=== PATIENT | female | born 1995 | race Caucasian/White ===

== ENCOUNTER → 2020-06-09 12:56 | Outpatient (BNVA) | payer BC, OTHER, SELFPAY | PROVIDERS: PCP Internal Medicine; Referring Provider Internal Medicine; Visit Provider Advanced Practice Midwife | DX: Z76.89 Persons encountering health services in other specified circumstances (principal) ==

== ENCOUNTER 2021-12-07 15:28 | Outpatient (REF) | payer BC, SELFPAY ==
[2021-12-07 16:23] LABS: COVID-19 Test Negative (Negative); IDNOW Serial# 16C4AD1C
== END 2021-12-07 15:29 | disposition home or self-care (01) ==
LOC: HO.LAB 15:28
PROVIDERS: PCP Internal Medicine; Visit Provider Physician Assistant
DX: Z20.822 Contact with and (suspected) exposure to COVID-19 (principal)
CPT/HCPCS: 87635

== ENCOUNTER 2023-06-18 16:19 | Emergency (ER) | payer OTHER, SELFPAY ==
[2023-06-18 16:40] VITALS: BP 116/79; PULSE 71; RESP 16; TEMP 36.3; O2SAT 100; BMI 36.1
--- NOTE | 2023-06-18 16:40 | ED_ITS ---
HPI - General Adult General Chief complaint: Urogenital-Female Stated complaint: bladder pain Time Seen by Provider: 06/18/23 18:03 Source: patient Mode of arrival: ambulatory Limitations: no limitations History of Present Illness HPI narrative: Patient is a 28-year-old female who presents emergency department for evaluation of genitourinary symptoms. She reports symptom onset approximately 1 month ago. She has been experiencing bladder pressure/pain, urinary frequency, sensation of incomplete voiding, intermittent vaginal discharge yellow in nature with itching. She reports in the beginning of April she had symptoms of urinary tract infection for which she received prescription for Macrobid 7 day course. Her symptoms had resolved. She began with a vaginal discharge and itching, on 06/03 she received prescription for Diflucan. She again began experiencing the aforementioned symptoms, on 06/05/2023 she received a 7 day prescription for Macrobid. After approximately 5 days she did not feel as though her symptoms were improving, she contacted her PCP, who prescribed her Bactrim for 3 days which she completed. She again reports no improvement in her symptoms. She states that she provided a urine sample at her doctor's office yesterday due to these continued symptoms. She reports a past medical history of ovarian cysts, and recurrent bacterial vaginosis when she was previously . She denies concern for sexually transmitted infections. Denies pain with intercourse. Last menstrual period 1 week ago. Denies fevers, chills, nausea, vomiting, flank pain, back pain, abdominal pain, constipation, diarrhea, hematochezia, melena, hematuria. Related Data Previous Rx's Medication Instructions Recorded phenazopyridine 100 mg tablet 100 mg PO TID PRN pain 6 doses #6 06/18/23 (Pyridium) tabs Allergies Allergy/AdvReac Type Severity Reaction Status Date / Time No Known Allergies Allergy Verified 06/09/20 13:06 [No Known Allergies*] Review of Systems 2 Review of Systems: Yes all other systems are reviewed and are negative PMFSH Past Medical History Attestation statement: The following information was validated with the patient. Source: old records reviewed Family History Family History Maternal Grandmother CVD (cardiovascular disease) Paternal Grandmother HTN (hypertension) Social History Social History Alcohol intake: never Advance Directives: No Advance Directives Information Provided: No Gender identity: Female Physical Exam ED Vital Signs: Vital Signs - 24 hr 06/18/23 16:40 Temperature 97.4 F Pulse Rate 71 Respiratory Rate 16 Blood Pressure 116/79 Pulse Oximetry 100 Oxygen Delivery Method Room Air BMI result Body Mass Index 36.1 Appearance: Alert.?Oriented to person, place and time. No acute distress.?Normal affect.?? Neck: Normal inspection.? Neck supple.?? CVS: Heart sounds normal. Normal heart rate and rhythm.? Pulses normal.?? Respiratory: No respiratory distress.? Lung sounds clear to auscultation bilaterally?? Abdomen: Soft and non-tender. Normoactive bowel sounds. No CVA tenderness? Genitourinary:? Supervised by ED natural resources technician CAT.. Normal external appearance of urethra.? No lesions/lacerations or discharge or tenderness noted. No Bartholin cyst noted.? Speculum exam: normal appearance/palpation of vagina normal. Presence of yellow/white mucosal vaginal discharge. no evidence of vaginal swelling, erythema, laceratons, or active bleeding noted.?No foreign bodies noted.? No vaginal tenderness noted.? Normal appearance of cervix. Normal palpation of cervix.? Cervical os is closed.? No abnormal cervical discharge noted.? No cervical lesion/mass.?? No cervical motion tenderness noted.? Negative chandelier sign.? Normal bimanual exam.? Uterine size normal. Uterine consistency normal.? Bladder normal to palpation. Normal adnexa. Normal rectovaginal exam. Skin: Skin warm and dry.? Normal skin color.? Extremities: No lower extremity edema.? Neuro: Moves all extremities spontaneously. Sensation intact bilaterally. Ambulates with normal steady gait. Course Course Course Narrative: This is an RME: Additional HPI, ROS, PE not included below will be deferred to primary provider. 28-year-old female w history of ovarian cysts and BV during presents for evaluation of sensation of bladder pressure/pain and increased urinary frequency. She says it feels like she isn't fully emptying her bladder. She has been on 2 rounds of antibiotics for a UTI and an oral antifungal for a suspected yeast infection. She also reports yellow/green discharge and vaginal itching for the past month. LMP was last week. Plan: Labs, urinalysis, test, NG/CT/BV Medical Decision Making Medical Decision Making [facility] Narrative: Patient is a 28-year-old female who presents emergency department for evaluation of genitourinary symptoms as per HPI. At the time my examination she appears overall well, nontoxic. She is afebrile, without tachypnea. Abdominal examination is benign. No CVA tenderness. Pelvic examination notable for white/yellow mucosal vaginal discharge otherwise unremarkable. History and physical examination, less likely to be PID. Pruritus has resolved, lower suspicion for Denise at this time. Sent testing for bacterial vaginosis panel, chlamydia, gonorrhea, Trichomonas. Labs obtained prior to my assumption of care reveals no leukocytosis or anemia. Overall unremarkable CMP. Lipase within normal limits. Urinalysis without evidence of infection. testing negative. Reviewed these findings with patient, discussed cystitis, symptomatic treatment primary outpatient with Urology. Reviewed worrisome symptoms the department. All questions answered. Stable for discharge. Differential Diagnosis Differential Diagnoses: The differential diagnosis associated with the presentation includes (As noted above) Lab Data [facility] Lab Attestation statement: I reviewed the patient's lab results. (As noted above) 06/18/23 16:59 06/18/23 16:59 Labs: Lab Results 06/18/23 06/18/23 Range/Units 16:59 19:08 WBC 7.8 (4.8-10.8) X10*3/uL RBC 4.87 (4.20-5.50) X10*6/uL Hgb 14.0 (12.0-16.0) g/dl Hct 42.5 (37.0-47.0) % MCV 87.3 (80.0-98.0) fL MCH 28.7 (27.0-33.0) pg MCHC 32.9 (31.0-35.0) g/dl RDW 13.0 (11.0-16.0) % Plt Count 333 (160-400) X10*3/uL MPV 10.2 (9.4-12.3) fL Immature Gran % (Auto) 0.3 (0.0-0.4) % Neut % (Auto) 56.6 (45-73) % Lymph % (Auto) 35.4 (20-40) % [place] % (Auto) 5.7 (2-11) % Eos % (Auto) 1.4 (0-4) % Baso % (Auto) 0.6 (0-2) % Lymph # (Auto) 2.7 (1.2-4.9) X10*3/uL [place] # (Auto) 0.4 (0.1-1.2) X10*3/uL Eos # (Auto) 0.1 (0.0-0.4) X10*3/uL Baso # (Auto) 0.1 (0.0-0.2) X10*3/uL Abs Immat Gran (auto) 0.02 (0.00-0.03) X10*3/uL Absolute Neuts (auto) 4.4 (2.0-8.3) x10*3/uL Absolute Nucleated RBC 0.000 (0.0-0.012) X10*3/uL Nucleated RBC % (auto) 0.0 (0.0-0.2) /100WBC Sodium 137 (135-145) mmol/L Potassium 4.8 (3.3-5.1) mmol/L Chloride 106 (96-108) mmol/L Carbon Dioxide 26 (22-29) mmol/L Anion Gap 10 L (12-20) BUN 9 (9-16) mg/dL Creatinine 0.72 (0.5-1.4) mg/dL Estim Creat Clear Calc 109.7 Estimated GFR > 60 Random Glucose 88 (60-115) mg/dL Calcium 9.3 (8.4-10.2) mg/dL Magnesium 1.9 (1.6-2.6) mg/dL Total Bilirubin 0.3 (0.0-1.0) mg/dL AST 15 (5-31) U/L ALT 18 (0-31) U/L Alkaline Phosphatase 74 (39-117) U/L Total Protein 7.8 (6.5-8.0) g/dL Albumin 4.4 (3.5-5.0) g/dL Lipase 18 (8-78) U/L Urine Color Yellow Urine Appearance Clear Urine pH 6.0 (5.0-9.0) Ur Specific Magnet 1.010 (1.005-1.025) Urine Protein Negative (Neg-Trace) mg/dL Urine Glucose (UA) Negative (Negative) mg/dL Urine Ketones Negative (Negative) mg/dL Urine Blood Negative (Negative) Urine Nitrite Negative (Negative) Ur Leukocyte Esterase Negative (Negative) Urine Test NEGATIVE (NEGATIVE) External Record Review External record reviewed: Outpatient record Prescription Management I considered prescription management with: Pain Medication and Antibiotic (Do not suspect acute infection at this, antibiotics deferred) Discharge Plan Discharge Clinical Impression: Cystitis Patient Disposition: Home, Self-Care Additional Instructions: You can take ibuprofen 200 mg, 3 tablets (600mg) every 6-8 hours as needed for pain, in addition to Tylenol 500 mg, 2 tablets (1,000mg) every 4-6 hours as needed for pain, but not to exceed 3 doses daily (3,000mg).? Contact the urology office to arrange for a follow-up visit. You may return back to emergency department any new or worsening symptoms or concerns. Prescriptions: New phenazopyridine [Pyridium] 100 mg tablet 100 mg PO TID PRN (Reason: pain) Qty: 6 0RF Referrals: Yuly Angeles MD [Physician] - David Mcdonough MD [Primary Care Provider] -
[2023-06-18 17:04] LABS: MANUAL DIFF FLAG NO
[2023-06-18 17:09] LABS: Basophils Absolute Auto 0.1 X10*3/uL (0.0-0.2); Basophils Percent Auto 0.6 % (0-2); Eosinophils Absolute Auto 0.1 X10*3/uL (0.0-0.4); Eosinophils Percent Auto 1.4 % (0-4); Hematocrit 42.5 % (37.0-47.0); Imm Gran Abs Auto 0.02 X10*3/uL (0.00-0.03); Imm Gran Pct Auto 0.3 % (0.0-0.4); Lymphocytes Absolute Auto 2.7 X10*3/uL (1.2-4.9); Lymphocytes Percent Auto 35.4 % (20-40); Mean Corpuscular HGB Conc 32.9 g/dl (31.0-35.0); Mean Corpuscular Hemoglobin 28.7 pg (27.0-33.0); Mean Corpuscular Volume 87.3 fL (80.0-98.0); Mean Platelet Volume 10.2 fL (9.4-12.3); Monocytes Absolute Auto 0.4 X10*3/uL (0.1-1.2); Monocytes Percent Auto 5.7 % (2-11); Neutrophils Absolute Auto 4.4 x10*3/uL (2.0-8.3); Neutrophils Percent Auto 56.6 % (45-73); Platelet Count 333 X10*3/uL (160-400); Red Blood Count 4.87 X10*6/uL (4.20-5.50); White Blood Count 7.8 X10*3/uL (4.8-10.8)
[2023-06-18 17:19] LABS: Alanine Aminotransferase 18 U/L (0-31); Albumin Level 4.4 g/dL (3.5-5.0); Alkaline Phosphatase 74 U/L (39-117); Anion Gap 10 (12-20); Aspartate Amino Transferase 15 U/L (5-31); Bilirubin Total 0.3 mg/dL (0.0-1.0); Blood Urea Nitrogen 9 mg/dL (9-16); Calcium 9.3 mg/dL (8.4-10.2); Carbon Dioxide 26 mmol/L (22-29); Chloride 106 mmol/L (96-108); Creatinine Clr Calc Pharmacy 109.7; Estimated Glomerular Filt Rate > 60; Glucose Random 88 mg/dL (60-115); Lipase 18 U/L (8-78); Magnesium 1.9 mg/dL (1.6-2.6); Potassium 4.8 mmol/L (3.3-5.1); Sodium 137 mmol/L (135-145); Total Protein 7.8 g/dL (6.5-8.0)
--- NOTE | 2023-06-18 18:53 | PC.NURSE ---
pelvic exam being performed by provider
[2023-06-18 19:18] LABS: Appearance Urine Clear; Color Urine Yellow; Glucose Urine UA Negative (Negative); Leukocyte Esterase Urine Negative (Negative); Nitrite Urine Negative (Negative); Urine Blood Negative (Negative); Urine Ketones Negative (Negative); Urine Protein Negative (Neg-Trace)
[2023-06-18 19:19] LABS: UPreg QC Valid YES; Urine Pregnancy NEGATIVE (NEGATIVE)
[2023-06-18 20:05] VITALS: BP 106/65; PULSE 74; RESP 20; TEMP 37.1; O2SAT 98
--- NOTE | 2023-06-18 20:17 | PC.NURSE ---
patient a&ox3, vss, pt has continued c/o pain- pt was prescribed medication which she will picker at the pharmacy on her way home.
[2023-06-19 03:51] LABS: CT PCR NOT DETECTED (Not Detect.); NG PCR NOT DETECTED (Not Detect.)
[2023-06-19 13:21] LABS: BV Int Neg Control Negative (Negative); BV Int Pos Control Positive (Positive)
== END 2023-06-18 20:27 | disposition home or self-care (01) ==
PROVIDERS: Physician Assistant; Emergency Provider Emergency Medicine; PCP Internal Medicine
DX: N30.90 Cystitis, unspecified without hematuria (principal); N89.8 Other specified noninflammatory disorders of vagina; Z87.440 Personal history of urinary (tract) infections
CPT/HCPCS: 0353U; 36415; 80053; 81003; 81025; 83690; 83735; 85025; 87480; 87510; 87660; 99283

== ENCOUNTER 2023-07-16 11:03 | Outpatient (AMB) | payer OTHER, SELFPAY ==
--- NOTE | 2023-07-16 11:07 | MHC.OFFVIS ---
Intake Intake Visit Reasons: cystitis Intake Note: New Patient presents for initial visit for cystitis Urology Medications: none Blood Thinner: none PVR: 0ml's Sales Management Trainee Required: No Accompanied by: Self / Same As Patient Allergies No Known Allergies [No Known Allergies*] Allergy (Verified 07/16/23 11:59) Medication List - Last Reconciled 07/16/23 by TERRI Coleman No Known Home Meds HPI HPI Comments History of Present Illness Details Herlinda is a very pleasant 28-year-old female patient of Dr. Mcdonough. She presents to the office today as a new patient for recurrent urinary tract infections. In discussion with the patient today she reports having had approximately 2 urinary tract infections in the last 3 months at which time she seeked urgent care services for. She reports having completed antibiotic therapy and has been doing and feeling much better. She reports being on dmanose over the counter and feels this helps her with her bladder pressure. She currently denies any UTI like symptoms. Discussed at length potential causes of recurrent urinary tract infections. When asked she does report constipation in does not feel she consumes adequate amount of water daily. In office urinalysis results reviewed with the patient today. Microscopic hematuria noted. She does report being on her menses. She otherwise denies any previous smoking history and or known chemical exposure. She reports be happy with current voiding parameters at this time. PVR 0 mLs. When asked she denies urinary urgency, urinary frequency, incontinence, nocturia, hematuria, dysuria, foul smelling urine, changes to urinary stream, flank pain, fever, and or chills. She otherwise offers no other issues or concerns at this time [facility] Family History Maternal Grandmother CVD (cardiovascular disease) Paternal Grandmother HTN (hypertension) Social History Alcohol intake: never Gender identity: Female Female Reproductive History Menstrual Age of Menarche: 10 Review of Systems Const All systems reviewed & are unremarkable except as noted in HPI and below Physical Exam Const General: cooperative, healthy appearing, comfortable, no acute distress, well developed, alert and awake Orientation/consciousness: patient oriented x3 Limitations: no limitations HEENT Head: Yes normal to inspection, Yes normocephalic and Yes atraumatic Ears: hearing grossly normal bilaterally Eyes General: appearance normal, both eyes and all related structures Neck Neck: Yes normal visual inspection and Yes trachea midline Chest Chest palpation & inspection: normal inspection of the chest Resp Effort & Inspection: normal respiratory effort and able to speak in complete sentences Cardio Rate: regular rate GI Inspection: Yes normal to inspection General: Yes no CVA tenderness Back/Spine/Pelvis Back: no CVA tenderness Skin General skin exam: no rashes or lesions noted Neuro General: patient oriented x3 Extrem General: Yes normal to inspection Psych Appearance: grossly normal and well kempt Mental Status: mental status grossly normal Speech and movement: Normal speech and movement present and Clear speech present Affect: normal affect Attitude: cooperative Thought process: Normal thought process present Thought content: Normal thought content present Insight: Good insight present (Psych) Judgement: Good judgement present (Psych) Office Procedures Post Void Residual Post Residual Void Post Void Residual (PVR): 0 [id number] Void Residual by ultrasound Results AMB Urinalysis, Automated UA Leukoctes 0 Alex/uL Last Edit by [employer] on 07/16/23 11:44 UA Nitrite Negative Last Edit by [employer] on 07/16/23 11:44 UA Urobilinogen 0.2 mg/dL Last Edit by [employer] on 07/16/23 11:44 UA Protein 15 mg/dL Last Edit by [employer] on 07/16/23 11:44 UA pH 6.0 Last Edit by [employer] on 07/16/23 11:44 UA Blood 10 Oswald/uL Last Edit by [employer] on 07/16/23 11:44 UA Specific Turner 1.030 Last Edit by [employer] on 07/16/23 11:44 UA Ketone Negative Last Edit by [employer] on 07/16/23 11:44 UA Bilirubin 1 mg/dL Last Edit by [employer] on 07/16/23 11:44 UA Glucose 0 mg/dL Last Edit by [employer] on 07/16/23 11:44 Results Reviewed Results Reviewed: Laboratory Last Values Urine pH (Auto) 6.0 07/16/23 11:09 Specific Turner (Auto) 1.030 07/16/23 11:09 Urine Protein (Auto) 15 mg/dL 07/16/23 11:09 Glucose (UA)(Auto) 0 mg/dL 07/16/23 11:09 Urine Ketones (Auto) Negative 07/16/23 11:09 Urine Blood (Auto) 10 Oswald/uL 07/16/23 11:09 Urine Nitrite (Auto) Negative 07/16/23 11:09 Urine Bilirubin (Auto) 1 mg/dL 07/16/23 11:09 Urine Urobilinogen (Auto) 0.2 mg/dL 07/16/23 11:09 Leukocyte Esterase (Auto) 0 Alex/uL 07/16/23 11:09 Assessment & Plan Assessment & Plan (1) Recurrent UTI: Code(s): N39.0 - Urinary tract infection, site not specified Plan In office urinalysis results reviewed with the patient today; as noted above. PVR 0 mL. Discussed at length potential causes for recurrent urinary tract infections. She currently denies any bothersome urinary issues or concerns at this time. She reports be happy with current voiding parameters. Will obtain retroperitoneal ultrasound for further assessment evaluation. Discussed UTI prevention with D mannose supplement, vitamin-C, increasing fluid intake, behavioral therapy with timed voiding, perineal hygiene and postcoital voiding, and management of constipation with stool softeners and increased fiber intake. Follow-up in 3 months with imaging to be completed prior PVR at next office visit; or sooner with any issues, concerns, and or questions. Orders: Orders AMB Urinalysis Automated Today Z13.9 - Encounter for screening, unspecified AMB Post Void Residual by ultrasound Today Z13.9 - Encounter for screening, unspecified US retroperitoneal comp Today N39.0 - Urinary tract infection, site not specified, R39.89 - Other symptoms and signs involving the genitourinary system Patient Instructions: The patient had an opportunity to ask questions regarding the treatment plan. All questions were answered. Physical exam, labs, and imaging were discussed and reviewed in detail. As well as risks, benefits, and discussion of treatment choices. No major barriers to understanding were identified. The patient expressed understanding and agreement with the above treatment plan. The patient was made aware they should contact our office by phone for worsening of their current condition, the appearance of new symptoms, or with any questions or concerns. Compliance is encouraged with any medications and follow up testing that is ordered. It is a privilege to be allowed the opportunity to participate in? your urological care.? Again, if you have any questions or concerns If you have any questions or concerns please do not hesitate to contact me. The office is [phone]. This note is constructed using voice recognition software. While every effort has been made to ensure accuracy card maker errors may have been included. Yours sincerely, TERRI Coleman Coding Level of Care Code New Pt Level 3 (47877) Diagnoses Recurrent UTI N39.0 CPT Codes Post Residual Void - PVR CPT Code: 50961-Ekfq Void Residual by ultrasound ([id number])
== END 2023-07-16 11:57 | disposition home or self-care (01) ==
PROVIDERS: PCP Internal Medicine; Visit Provider Nurse Practitioner Family
DX: Z13.9 Encounter for screening, unspecified (principal); N39.0 Urinary tract infection, site not specified
CPT/HCPCS: 99203

== ENCOUNTER → 2023-07-16 11:03 | Outpatient (BNVA) | payer OTHER, SELFPAY | PROVIDERS: PCP Internal Medicine; Visit Provider Nurse Practitioner Family | DX: N39.0 Urinary tract infection, site not specified (principal) | CPT/HCPCS: 51798; 81003 ==

== ENCOUNTER 2023-08-07 14:30 | Outpatient (REF) | payer OTHER, SELFPAY ==
--- NOTE | ~2023-08-07 | US_ITS ---
EXAMINATION: US RETROPERITONEAL COMPLETE (RENAL) CLINICAL INFORMATION: Urinary tract infection, site not specified. COMPARISON: None available. TECHNIQUE: Real-time imaging of the kidneys and bladder. FINDINGS: RIGHT KIDNEY: 11.0 x 4.3 x 6.2 cm (SAG x AP x TRV). The kidney is normal in size, contour, and echogenicity. Renal cortical thickness is normal. No calculi or focal parenchymal lesions. No hydronephrosis. LEFT KIDNEY: 11.8 x 5.5 x 5.4 cm (SAG x AP x TRV). The kidney is normal in size, contour, and echogenicity. Renal cortical thickness is normal. No calculi or focal parenchymal lesions. No hydronephrosis. BLADDER: Well distended and normal. Bilateral ureteral jets are demonstrated. Prevoid bladder volume is 503 mL. There is no postvoid residual. US/US retroperitoneal comp IMPRESSION: Unremarkable examination.
== END 2023-08-07 14:31 | disposition home or self-care (01) ==
LOC: HO.US 14:30
PROVIDERS: PCP Internal Medicine; Visit Provider Nurse Practitioner Family
DX: N39.0 Urinary tract infection, site not specified (principal); R39.89 Other symptoms and signs involving the genitourinary system
CPT/HCPCS: 76770

== ENCOUNTER 2023-08-21 13:06 | Outpatient (REF) | payer OTHER, SELFPAY ==
[2023-08-22 14:07] LABS: BV Int Neg Control Negative (Negative); BV Int Pos Control Positive (Positive)
== END 2023-08-21 13:07 | disposition home or self-care (01) ==
LOC: HO.LAB 13:06
PROVIDERS: PCP Internal Medicine; Visit Provider Advanced Practice Midwife
DX: Z32.01 Encounter for pregnancy test, result positive (principal); B37.31 Acute candidiasis of vulva and vagina; Z20.2 Contact with and (suspected) exposure to infections with a predominantly sexual mode of transmission
CPT/HCPCS: 81025; 87480; 87510; 87660

== ENCOUNTER 2023-08-21 13:06 | Outpatient (AMB) | payer OTHER, SELFPAY ==
--- NOTE | 2023-08-21 13:06 | A.OFFVIS_ITS ---
Intake Vital Signs 08/21/23 13:18 Height 5 ft Weight 186 lb BMI 36.3 BP 122/70 Intake Visit Reasons: Preg Consult Sewer Hand Required: No Information Interpreted: clinical only Bisque Ware Dipper: Bisque Ware Dipper Present Allergies No Known Allergies [No Known Allergies*] Allergy (Verified 08/21/23 13:06) Medication List - Last Reconciled 08/21/23 by Cassie De Leon CNM PNV no.175-iron fum-folic acid 29-1 mg tabs PO Is last menstrual period known: Yes Last menstrual period: 07/09/23 Do you need a note to return to daycare/school/sports/work: No HPI Preg Consult HPI Details Patient is scheduled here today as a consult visit. However she also has vaginal itching and she wants to get that checked out. Set she says she had a visit for consult on September 03 but it got bumped to today. Her last menstrual period was 07 09 she was trying to get so she is exactly 6 weeks on the nose and due in March. She said she spoke with somebody when she called for this appointment who says that they ordered an ultrasound for her already that has in a week or 2 for dating. She does not know of a follow-up visit from there. She says that this CNM delivered her 1st baby but her 2nd baby last year she delivered at [facility] because we had no birthing center but then she joined her 's insurance so she made this appointment here. She has used Monistat 7 for a couple of nights but it did not seem to make a difference she went for urgent care over the weekend in [place] where she lives but they told her everything tested negative. [facility] Medical History (Updated 08/21/23 @ 13:56 by Cassie De Leon CNM) Early stage of Family History Maternal Grandmother CVD (cardiovascular disease) Paternal Grandmother HTN (hypertension) Social History Alcohol intake: never Gender identity: Female Female Reproductive History Menstrual Age of Menarche: 10 Duration of menses: 3-5 days Date of last menstrual period: 07/09/23 control method: none Total pregnancies: 3 Full term: 2 Physical Exam Vital Signs: Last Vital Signs BP 122/70 08/21/23 13:18 BMI result Body Mass Index 36.3 Other: Vagina is pink consistent with yeast, slightly inflame cervix multiparous small amount white discharge no Denilson. Uterus softened consistent with 6 weeks . External Female Exam: normal external appearance (vulva swollen and enflamed, surface appears dry, disch c/w yeast ), normal appearance of the urethra and erythema Speculum Exam - Vagina: normal appearance of the vagina and normal vaginal discharge (c/w yeast) Speculum Exam - Cervix: normal appearance of the cervix Results AMB Test Urine AMB Test Urine Positive Last Edit by Shyam Whaley CMA on 08/21/23 13:23 Results Reviewed Results Reviewed: Laboratory Last Values Tst Clinic Positive 08/21/23 13:18 Assessment & Plan Assessment & Plan (1) Early stage of : Code(s): Z34.90 - Encounter for supervision of normal , unspecified, unspecified trimester (2) Yeast infection involving the vagina and surrounding area: Code(s): B37.31 - Acute candidiasis of vulva and vagina Plan Patient states she had no medical problems in her other pregnancies and has no other medical problems she is taking her gummies and that worked for her in her last and that is what she wants to stay on. I tried to prescribe her Monistat 7 however it is not covered under her particular insurance plan and the substitutions are not what is appropriate (suppositories). She needs the vaginal cream for 7 days. I recommend air drying and air exposure at night and cotton on these which she is wearing and there has no need for soaps or washes. Other than cold water. Major discussion about the fact that we do not have the birthing center anymore and are not able to offer comprehensive start to finish obstetric care however she can come to us for care and then deliver at [facility] if she chooses. I recommend she check her options at human resources.. Additionally it seems that she is already been given an appointment for a pelvic ultrasound for dating so she will have an appointment with whoever ordered that ultrasound to review the dates. After that if she decides to come to us she will need the entry level accountant and the OB intake and the nuchal translucency at [facility] at 12 weeks I did tell her about this but she be deciding where she is going to go for care in general as well. Orders: Orders AMB HCG Urine Test Today Z32.01 - Encounter for test, result positive Bacterial Vaginosis Panel Today Z20.2 - Contact with and (suspected) exposure to infections with a predominantly sexual mode of transmission Coding Level of Care Code Est Pt Level 3 (33473) Diagnoses Early stage of Z34.90 Yeast infection involving the vagina and surrounding area B37.31
[2023-08-21 13:18] VITALS: BP 122/70; BMI 36.3
== END 2023-08-21 13:56 | disposition home or self-care (01) ==
LOC: HO.HWSM 13:06
PROVIDERS: PCP Internal Medicine; Visit Provider Advanced Practice Midwife
DX: Z34.90 Encounter for supervision of normal pregnancy, unspecified, unspecified trimester (principal); B37.31 Acute candidiasis of vulva and vagina; Z32.01 Encounter for pregnancy test, result positive
CPT/HCPCS: 99213

== ENCOUNTER 2023-08-26 13:22 | Outpatient (REF) | payer OTHER, SELFPAY ==
--- NOTE | ~2023-08-26 | US_ITS ---
EXAMINATION: US OBSTETRICAL ULTRASOUND CLINICAL INFORMATION: ; for dating. COMPARISON: None this . LMP: 07/09/2025. Gestational age by maternal dates is 6 weeks and 6 days. Estimated date of delivery by maternal dates is 04/14/2024. TECHNIQUE: Ultrasound of the maternal pelvis is performed using transabdominal and transvaginal transducers. Transvaginal imaging is performed due to inadequate visualization transabdominally. M-mode Doppler is also performed. FINDINGS: There is a single intrauterine gestational sac with visible yolk sac, embryo/fetus, and cardiac activity. There is no significant subchorionic hemorrhage or hematoma. HR: Not identified. CRL (crown rump length): 0.29 cm (6 weeks and 0 days +/- 4 days). RODRIGO (estimated date of delivery): 04/19/2024 +/- 4 days. MATERNAL ADNEXA: The right maternal ovary measures 2.0 x 3.2 x 2.1 cm. The left maternal ovary measures 4.4 x 1.8 x 1.7 cm. The left ovary contains a 1.5 x 2.1 x 2.5 cm There is no significant maternal adnexal mass. No maternal pelvic ascites. US/US OB pelvic and transvaginal IMPRESSION: 1. Single intrauterine gestation with ultrasound gestational age of 6 weeks and 0 days +/- 4 days. 2. Estimated date of delivery is 04/19/2024 +/- 4 days. 3. No heart rate is detected, possibly due to early gestational age. Recommend short-term follow-up ultrasound examination to assess for heart rate, as well as serial beta hCG levels. 4. No maternal adnexal mass or pelvic ascites.
== END 2023-08-26 13:23 | disposition home or self-care (01) ==
LOC: HO.US 13:22
PROVIDERS: PCP Internal Medicine; Visit Provider Advanced Practice Midwife
DX: Z34.91 Encounter for supervision of normal pregnancy, unspecified, first trimester (principal); Z3A.01 Less than 8 weeks gestation of pregnancy
CPT/HCPCS: 76801; 76817

== ENCOUNTER 2023-09-04 12:57 | Outpatient (REF) | payer OTHER, SELFPAY ==
--- NOTE | ~2023-09-04 | US_ITS ---
EXAMINATION: US OBSTETRICAL ULTRASOUND CLINICAL INFORMATION: Check for viability COMPARISON: Obstetrical ultrasound 08/26/2023 LMP: 07/09/2023. Gestational age by maternal dates is 8 weeks 1 day. Estimated date of delivery by maternal dates is 04/14/2024. TECHNIQUE: Transabdominal and transvaginal imaging were performed. M-mode Doppler was also performed. FINDINGS: There is a single intrauterine gestational sac with visible yolk sac, fetus, and cardiac activity. There is no significant subchorionic hemorrhage or hematoma. HR: 135 beats per minute. CRL (crown rump length): 0.8 cm (6 weeks 6 days +/- 4 days). RODRIGO (estimated date of delivery): 04/23/2024 +/- 4 days. Based on the initial ultrasound of 08/26/2023, estimated gestational age is 7 weeks 0 days +/- 4 days with an estimated of delivery of 04/19/2024 +/- 4 days. MATERNAL ADNEXA: The right maternal ovary measures 4.0 x 2.3 x 1.7 cm. The right ovary is normal in appearance. The left maternal ovary measures 3.8 x 2.0 x 4.1 cm. There is a 2.0 x 2.0 x 1.6 cm corpus luteum. There is no free fluid within the cul-de-sac. US/US OB <= 14 weeks fetus IMPRESSION: 1. Single intrauterine gestation with ultrasound gestational age of 7 weeks 0 days +/- 4 days. 2. Estimated date of delivery is 04/19/2024 +/- 4 days. 3. No maternal adnexal mass or pelvic ascites.
== END 2023-09-04 12:58 | disposition home or self-care (01) ==
LOC: HO.HMGCX 12:57
PROVIDERS: PCP Internal Medicine; Visit Provider Advanced Practice Midwife
DX: Z34.91 Encounter for supervision of normal pregnancy, unspecified, first trimester (principal); Z3A.01 Less than 8 weeks gestation of pregnancy
CPT/HCPCS: 76801

== ENCOUNTER 2023-09-06 13:35 | Outpatient (AMB) | payer OTHER, SELFPAY ==
--- NOTE | 2023-09-06 13:35 | A.OFFVIS_ITS ---
Intake Intake Visit Reasons: TV,US,result Wool Mixer Required: No Allergies No Known Allergies [No Known Allergies*] Allergy (Verified 09/06/23 13:35) Is last menstrual period known: Yes Last menstrual period: 07/09/23 Post menopausal: No Patient : Yes HPI TV,US,result HPI Details This is a tele health to review patient's ultrasound, yielding an RODRIGO of 04/19/2024. The patient had had a previous ultrasound that was extremely early and heart was not audible at that ultrasound. Patient now shared that her cycles are sometimes 30-35 days so that makes blame the dating differential between how far along she thought she was and the gestational ages assessed by the 2 ultrasounds. She has had vaginal births 1 at [facility] in 1 at [facility] after closure of the birthing center. She lives in [place] but her works at [facility] but she has investigated that she can receive her care at [facility] should she choose. I had discussed these issues with her at her previous visit and she has already made an appointment and has upcoming nurse visit and physical exam with provider visit set up at [facility] practice she is going to sign for records to be sent there she is taking her gummies and she has not having any other problems and she knows that for any emergency she would go to [facility]. [facility] Medical History (Updated 09/06/23 @ 14:01 by Cassie De Leon CNM) Early stage of Family History Maternal Grandmother CVD (cardiovascular disease) Paternal Grandmother HTN (hypertension) Social History Alcohol intake: never Patient : Yes Gender identity: Female Female Reproductive History Menstrual Age of Menarche: 10 Date of last menstrual period: 07/09/23 control method: none Results Reviewed Results Reviewed: Patient: Herlinda Sinclair MR#: [id number] : 1995 Acct:[id number] Age/Sex: 28 / F ADM Date: 09/04/23 Loc: HO.[facility]GCX Attending Dr: Cassie De Leon CNM Ordering Physician: Cassie De Leon CNM Date of Service: 09/04/23 Procedure(s): US OB <= 14 weeks fetus Accession Number(s): [id number] cc: David Mcdonough; Cassie De Leon CNM~ EXAMINATION: US OBSTETRICAL ULTRASOUND CLINICAL INFORMATION: Check for viability COMPARISON: Obstetrical ultrasound 08/26/2023 LMP: 07/09/2023. Gestational age by maternal dates is 8 weeks 1 day. Estimated date of delivery by maternal dates is 04/14/2024. TECHNIQUE: Transabdominal and transvaginal imaging were performed. M-mode Doppler was also performed. FINDINGS: There is a single intrauterine gestational sac with visible yolk sac, fetus, and cardiac activity. There is no significant subchorionic hemorrhage or hematoma. HR: 135 beats per minute. CRL (crown rump length): 0.8 cm (6 weeks 6 days +/- 4 days). RODRIGO (estimated date of delivery): 04/23/2024 +/- 4 days. Based on the initial ultrasound of 08/26/2023, estimated gestational age is 7 weeks 0 days +/- 4 days with an estimated of delivery of 04/19/2024 +/- 4 days. MATERNAL ADNEXA: The right maternal ovary measures 4.0 x 2.3 x 1.7 cm. The right ovary is normal in appearance. The left maternal ovary measures 3.8 x 2.0 x 4.1 cm. There is a 2.0 x 2.0 x 1.6 cm corpus luteum. There is no free fluid within the cul-de-sac. US/US OB <= 14 weeks fetus IMPRESSION: 1. Single intrauterine gestation with ultrasound gestational age of 7 weeks 0 days +/- 4 days. 2. Estimated date of delivery is 04/19/2024 +/- 4 days. 3. No maternal adnexal mass or pelvic ascites. Dictated By: Marga Beavers MD Signed By: <Electronically signed by Marga Beavers MD in OV> 09/05/23 0948 DD/ 1325 TD/TT: Invisible Braces Orthodontist: Assessment & Plan Assessment & Plan (1) Early stage of : Comment: Per 08/26/23, and 09/04/23, ultrasound RODRIGO 04/19/2024 Code(s): Z34.90 - Encounter for supervision of normal , unspecified, unspecified trimester Plan This is a tele health to review patient's ultrasound, yielding an RODRIGO of 04/19/2024. The patient had had a previous ultrasound that was extremely early and heart was not audible at that ultrasound. Patient now shared that her cycles are sometimes 30-35 days so that makes blame the dating differential between how far along she thought she was and the gestational ages assessed by the 2 ultrasounds. She has had vaginal births 1 at [facility] in 1 at [facility] after closure of the birthing center. She lives in [place] but her works at [facility] but she has investigated that she can receive her care at [facility] should she choose. I had discussed these issues with her at her previous visit and she has already made an appointment and has upcoming nurse visit and physical exam with provider visit set up at [facility] practice she is going to sign for records to be sent there she is taking her gummies and she has not having any other problems and she knows that for any emergency she would go to [facility]. Telehealth Telehealth Location of provider rendering services: practice address Location of patient: other (work) Patient Identification confirmed using: Name, : Yes Telehealth method: video Patient verbally consented to treatment: Yes Patient verbally consented to billing insurance company: Yes Patient informed of any privacy concerns related to visit: Yes Coding Level of Care Code Tele Est Pt Level 3 (08445) Diagnoses Early stage of Z34.90 Time Spent (min) 15 Comment 1 tel call( video didnt work)/ charting=15
== END 2023-09-06 14:48 | disposition home or self-care (01) ==
LOC: HO.HWSM 13:35
PROVIDERS: PCP Internal Medicine; Visit Provider Advanced Practice Midwife
DX: Z34.90 Encounter for supervision of normal pregnancy, unspecified, unspecified trimester (principal)
CPT/HCPCS: 99213

== ENCOUNTER → 2023-09-06 13:35 | Outpatient (BNVA) | payer OTHER, SELFPAY | PROVIDERS: PCP Internal Medicine; Visit Provider Advanced Practice Midwife ==

== ENCOUNTER 2024-06-24 15:19 | Outpatient (AMB) | payer OTHER, SELFPAY ==
--- NOTE | 2024-06-24 15:30 | A.OFFVIS_ITS ---
Intake Visit Reasons: follow up/US/UTI?(set) Intake Note: Patient presents for follow visit for Ultrasound results and recurrent UTI Urology Medications: none Blood Thinner: none PVR: 0ml's Credit Underwriter Required: No Accompanied by: Self / Same As Patient Allergies No Known Allergies [No Known Allergies*] Allergy (Verified 06/24/24 16:07) Medication List - Last Reconciled 06/24/24 by Jacqui Chang MAINTENANCE EQUIPMENT OPERATOR- norethindrone-e.estradiol-iron 1 mg-20 mcg (21)/75 mg (7) (08/10 (28)) 1 tab PO DAILY HPI Comments Details: Herlinda is a very pleasant 29-year-old female patient of Dr. Mcdonough. She presents to the office today for follow-up. Of note, patient was seen approximately 1 year ago as a new patient for recurrent urinary tract infections at which time a retroperitoneal ultrasound was ordered and recommendations were made for a 1-3 month follow-up. However, in discussion with the patient today she reports shortly after her appointment here over a year ago she found out she was and has since given to her daughter. She reports noting lower urinary tract symptoms of bladder pressure she had been experiencing had subsided while . She reports lower urinary tract symptoms have returned now that she is getting her menses. She reports noting lower urinary tract symptoms of bladder pressure with menses. In office urinalysis results reviewed with the patient today 2+ leukocytes otherwise within normal limits. She reports currently being on her menses. She discusses feeling when she increases her p.o. intake of water symptoms improve. Recent retroperitoneal ultrasound results reviewed with the patient today. Bilateral kidneys are normal in size, contour, and echogenicity. Bilateral kidneys with no calculi, lesions, and or hydronephrosis. The bladder is well distended and normal. Bilateral ureteral jets are demonstrated. Pre void bladder volume is a proximally 500 mL. There is no postvoid residual volume. Unremarkable examination. We discussed further treatment options to include microgen, in office cystoscopy, avoiding bladder triggers/irritants, and surveillance monitoring. She otherwise denies any previous smoking history and or known chemical exposure. PVR 0 mLs. When asked she denies urinary urgency, urinary frequency, incontinence, nocturia, hematuria, dysuria, foul smelling urine, changes to urinary stream, flank pain, fever, and or chills. She otherwise offers no other issues or concerns at this time. [facility] Medical History Early stage of Family History Maternal Grandmother CVD (cardiovascular disease) Paternal Grandmother HTN (hypertension) Social History Alcohol intake: never Gender identity: Female Female Reproductive History Menstrual Age of Menarche: 10 Review of Systems Const All systems reviewed & are unremarkable except as noted in HPI and below Physical Exam Const General: cooperative, healthy appearing, comfortable, no acute distress, well developed, alert and awake Orientation/consciousness: patient oriented x3 Limitations: no limitations HEENT Head: Yes normal to inspection, Yes normocephalic and Yes atraumatic Ears: hearing grossly normal bilaterally Eyes General: appearance normal, both eyes and all related structures Neck Neck: Yes normal visual inspection and Yes trachea midline Chest Chest palpation & inspection: normal inspection of the chest Resp Effort & Inspection: normal respiratory effort and able to speak in complete sentences Cardio Rate: regular rate GI Inspection: Yes normal to inspection General: Yes no CVA tenderness Back/Spine/Pelvis Back: no CVA tenderness Skin General skin exam: no rashes or lesions noted Neuro General: patient oriented x3 Extrem General: Yes normal to inspection Psych Appearance: grossly normal and well kempt Mental Status: mental status grossly normal Speech and movement: Normal speech and movement present and Clear speech present Affect: normal affect Attitude: cooperative Thought process: Normal thought process present Thought content: Normal thought content present Insight: Good insight present (Psych) Judgement: Good judgement present (Psych) Office Procedures Post Void Residual Post Residual Void Post Void Residual (PVR): 0 [id number]-[id number] Void Residual by ultrasound Results AMB Urinalysis, Automated UA Leukoctes 0 Alex/uL Last Edit by Pam Reyes on 06/24/24 16:09 UA Nitrite Last Edit by Pam Reyes on 06/24/24 16:09 UA Urobilinogen 0.2 mg/dL Last Edit by Pam Reyes on 06/24/24 16:09 UA Protein 0 mg/dL Last Edit by Pam Reyes on 06/24/24 16:09 UA pH 6.5 Last Edit by Pam Reyes on 06/24/24 16:09 UA Blood 80 Oswald/uL Last Edit by Pam Reyes on 06/24/24 16:09 UA Specific [place] 1.010 Last Edit by Pam Reyes on 06/24/24 16:09 UA Ketone Last Edit by Pam Reyes on 06/24/24 16:09 UA Bilirubin 0 mg/dL Last Edit by Pam Reyes on 06/24/24 16:09 UA Glucose 0 mg/dL Last Edit by Pam Reyes on 06/24/24 16:09 Results Reviewed Results Reviewed: Date of Service: 08/07/23 EXAMINATION: US RETROPERITONEAL COMPLETE (RENAL) FINDINGS: RIGHT KIDNEY: 11.0 x 4.3 x 6.2 cm (SAG x AP x TRV). The kidney is normal in size, contour, and echogenicity. Renal cortical thickness is normal. No calculi or focal parenchymal lesions. No hydronephrosis. LEFT KIDNEY: 11.8 x 5.5 x 5.4 cm (SAG x AP x TRV). The kidney is normal in size, contour, and echogenicity. Renal cortical thickness is normal. No calculi or focal parenchymal lesions. No hydronephrosis. BLADDER: Well distended and normal. Bilateral ureteral jets are demonstrated. Prevoid bladder volume is 503 mL. There is no postvoid residual. IMPRESSION: Unremarkable examination. Assessment & Plan Assessment & Plan (1) Sensation of pressure in bladder area: Code(s): R39.89 - Other symptoms and signs involving the genitourinary system Category: Medical (2) Recurrent UTI: Code(s): N39.0 - Urinary tract infection, site not specified Category: Medical Plan In office urinalysis results with the patient today; as noted above. Recent retroperitoneal ultrasound results reviewed with the patient today; as noted above. We discussed at length potential causes of bladder pressure. We discussed correlation of lower urinary tract symptoms with menses. Discussed bladder triggers/irritants. Discussed further treatment options to include microgen in office cystoscopy for further assessment evaluation. Will continue with surveillance monitoring at this time. Discussed, educated, and stressed the importance of adequate hydration relation to lower urinary tract symptoms as well as overall health and well-being. Follow-up in 1-3 months; or sooner with any issues, concerns, and or questions. Orders: Orders AMB Urinalysis Automated Today Z13.9 - Encounter for screening, unspecified AMB Post Void Residual by ultrasound Today N39.0 - Urinary tract infection, site not specified Patient Instructions: The patient had an opportunity to ask questions regarding the treatment plan. All questions were answered. Physical exam, labs, and imaging were discussed and reviewed in detail. As well as risks, benefits, and discussion of treatment choices. No major barriers to understanding were identified. The patient expressed understanding and agreement with the above treatment plan. The patient was made aware they should contact our office by phone for worsening of their current condition, the appearance of new symptoms, or with any questions or concerns. Compliance is encouraged with any medications and follow up testing that is ordered. It is a privilege to be allowed the opportunity to participate in? your urological care.? Again, if you have any questions or concerns If you have any questions or concerns please do not hesitate to contact me. The office is [phone]. This note is constructed using voice recognition software. While every effort has been made to ensure accuracy concrete paving supervisor errors may have been included. Yours sincerely, TERRI Coleman Coding Level of Care Code Est Pt Level 3 (36715) Diagnoses Sensation of pressure in bladder area R39.89 Recurrent UTI N39.0 CPT Codes Post Residual Void - PVR CPT Code: 57318-Pfiw Void Residual by ultrasound ([id number])
--- OUTSIDE RECORDS SUMMARY | 2024-06-30 20:58 | XMS_ITS ---
Author Name [facility] Organization Unknown History of Medication Use Medication Directions Dispensed Refills Start Date End Date Stat DiflucanTake 1 tablet (Oral) 1 time per day for 1 days (may repeat the dose in 72 hours)[id number] 1 time per arjWrhy0ttkxsvhrnmye d150mg 07/30/2023 suspended MacrobidTake 1 Capsule (oral) 2 times per day for 5 [id number] times per [id number] d100mg 06/05/2023 suspended 01/31/2022 completed Provera 10 mg tablet Take 1 tablet every day by oral route for 10 days. Take 1 tablet every day by oral route for 10 days. 01/31/2022 completed 01/31/2022 completed amoxicillin-pot clavulanateTake 1 Caplet (oral) 2 times per day for 10 [id number] times per [id number] 75-125mg 07/30/2023 active metronidazole 500 mg tablet Take 1 tablet every 12 hours by oral route for 7 days. Take 1 tablet every 12 hours by oral route for 7 days. 07/18/2022 completed No medication information recorded 08/19/2023 active Bonjesta 20 mg-20 mg tablet,immediate and delay release Take 1 tablet twice a day by oral route. Take 1 tablet twice a day by oral route. 01/31/2022 complet ed DiflucanTake 1 tablet (Oral) 1 time per day for 1 days (may repeat the dose in 72 hours)[id number] 1 time per [id number] d150mg 06/05/2023 suspended Problems Problem Status Onset Date Problem Type Date of Resoluti on Source Gestation period, 10 weeks active 2022-01-26 ProblemAct [facility] test positive active 2022-01-08 ProblemAct [facility] Morning sickness active 2022-01-08 ProblemAct [facility] Oligomenorrhea active 2021-04-28 ProblemAct [facility] Primary infertility active 2021-07-17 ProblemAct [facility] Urinary symptoms active 2021-04-28 ProblemAct [facility] test negative active 2021-04-28 ProblemAct [facility] state, incidental active 2023-08-17 ProblemAct [facility] Acute vaginitis active 2023-08-[address] [facility]
== END 2024-06-24 16:07 | disposition home or self-care (01) ==
PROVIDERS: PCP Internal Medicine; Visit Provider Nurse Practitioner Family
DX: R39.89 Other symptoms and signs involving the genitourinary system (principal); N39.0 Urinary tract infection, site not specified; Z13.9 Encounter for screening, unspecified
CPT/HCPCS: 99213

== ENCOUNTER → 2024-06-24 15:19 | Outpatient (BNVA) | payer OTHER, SELFPAY | PROVIDERS: PCP Internal Medicine; Visit Provider Nurse Practitioner Family | DX: R39.89 Other symptoms and signs involving the genitourinary system (principal); N39.0 Urinary tract infection, site not specified | CPT/HCPCS: 51798; 81003 ==

== ENCOUNTER 2024-07-03 12:26 | Outpatient (REF) | payer OTHER, SELFPAY ==
--- OUTSIDE RECORDS SUMMARY | 2024-07-03 12:28 | XMS_ITS | Continuity of Care Document ---
Author Organization [facility], [facility] Address [address] [place] [address] Assessment No assessment recorded. Plan of Treatment Reminders Order Date Submit Date Provider Last Modified By Organization Details Last Modified Time Details Appointments ULTRASO UND 30 2023 02:00P M C[facility]1 Ultrasound Not available Not available Not available OFFICE VISIT 15 2023 10:00A M Anthony White MD Not available Not available Not available Lab bacteri al vaginos is + vaginit is panel, vaginal 2023 024 [facility], [address] [place], [address] 07/02/2024 10:56:07 Referral None recorde d. Procedures None recorde d. Surgeries None recorde d. Imaging None recorde d. Medication Orders None recorde d. Patient TargetsNo targets recorded. Patient InstructionsNo instructions recorded. Reason for Referral None Reported. Problems Name Problem SNOMED Code Status Onset Date Resolution Date Notes Provider Name and Address Organization Details Recorded Time test positive 143109812 Active 2021 Glory Carey DO [address], [address] [facility], [place], [address], [facility] 2 08:11:01 test negative 923343255 Active 2020 Glory Carey DO [address] [facility], [place], [address], [facility] 2 08:11:01 Gestation period, 10 weeks 32697329 Active 2021 Glory Carey DO [address], [address], [place], [address], [facility] 2 08:11:01 Oligomenorrhea 81974952 Active 2020 Glorydanae Carey DO [address], [address], [place], [address], [facility] 2 08:11:01 Primary infertility 038329580 Active 2020 [address], [place], [address], [facility] 2 08:11:01 Urinary symptoms 195902017 Active 2020 Glory DO Jessica [address], [place], [address], [facility] 2 08:11:01 Morning sickness 04118839 Active 2021 Glory DO Jessica [address], [address] [place] [address], [place], [address], [facility] 2 08:11:01 Notes:Some problems listed i n Document: #[id number] could not be added to this patient's chart. Please review this document and add these problems to the patient's chart manually as needed. Problem Notes None recorded. Procedures Surgical History Date Name Laterality Status Provider Name and Address Organization Details Recorded Time 4 delivery completed Glory DO Jessica [address], [address] [place] [address], [place], [address], [facility] 07/02/2024 10:15:35 3 Date of Last Pap Smear completed Glory DO Jessica [address], [address] [place] [address], [place], [address], [facility] 09/25/2022 17:44:32 9 extraction of wisdom tooth completed Glory CareyDO [address] [facility], [place], [address], [facility] 02/22/2022 15:53:51 3 tooth extraction completed ANTHONY WHITE MD [address] [place] [address], [address] Floor, [place], [address], [place] - [facility] 02/20/2021 14:37:47 Imaging Results None recorded. Procedure Notes None recorded. Medical Equipment None Reported. Allergies No known drug allergies Medications Name Sig Start Date Stop Date Status Note LastModified by Organization Details LastModified Time ibuprofen 800 mg tablet active Not Available Not Available Not Available clotrimazol e 1 % vaginal cream TAKE 1 APPLICATI ON (VAGINAL) AT BEDTIME FOR 7 DAYS 07/02 completed Not Available Not Available Not Available metronidazo le 500 mg tablet Take 1 tablet every 12 hours by oral route for 7 days. 09/20 completed Not Available Not Available Not Available sulfamethox azole 800 mg-trimetho prim 160 mg tablet 07/02 completed Not Available Not Available Not Available diclofenac sodium 75 mg tablet,odalys yed release 07/02 completed Not Available Not Available Not Available Provera 10 mg tablet Take 1 tablet every day by oral route for 10 days. 02/22 completed Not Available Not Available Not Available amoxicillin 875 mg-potassiu m clavulanate 125 mg tablet TAKE 1 TABLET BY MOUTH TWICE A DAY FOR 10 DAYS 07/02 completed Not Available Not Available Not Available oxycodone 5 mg tablet 07/02 completed Not Available Not Available Not Available Junel FE 08/10 (28) 1 mg-20 mcg (21)/75 mg (7) tablet 07/02 completed Not Available Not Available Not Available active Not Available Not Avai lable Not Available Lo Loestrin Fe 1 mg-10 mcg (24)/10 mcg (2) tablet Take 1 tablet every day by oral route. active Not Available Not Available No t Available d-mannose active Not Available Not Kathleen ilable Not Available Bonjesta 20 mg-20 mg tablet,imme diate and delay release Take 1 tablet twice a day by oral route. 02/22 completed Not Available Not Available Not Available Vitals Date Recorded Body height Systolic blood pressure Diastolic blood pressure Provider Name and Address Organization Details Last Updated DateTime 07/02/2024 152.4 cm 120 mm[Hg] 72 mm[Hg] Jose Jennings [place] - [facility] 07/02/2024 10:11:11 Social History Question Answer Notes LastModified by Organizat ion Details LastModified Time Tobacco Smoking Status Never Smoker Glory Carey DO [address] [facility], [address]rd Floor, [place], [address], [place] - [facility] 02/22/2022 15:53:10 What Is Your Level Of Alcohol Consumption? None Information not available 09/20/2022 What Is Your Level Of Caffeine Consumption? Moderate Soda 1-2/day Information not available 07/02/2024 Are You Currently Employed? Yes Information not available 02/22/2022 What Is Your Occupation? [employer] Information not available 02/22/2022 Do You Have Any Children? Yes Information not available 02/22/2022 Does Your Partner Physically Hurt You Or Threaten To Hurt You? No [email or web address] Information not available 04/28/2021 Has Your Partner Forced You To Have Sex Or Perform Sex Acts When You Did Not Want To? No [email or web address] Information not available 04/28/2021 Does Your Partner Insult, Scream At Or Talk Down To You? No [email or web address] Information not available 04/28/2021 Does Your Partner Control You Or Any Part Of Your Life? No [email or web address] Information not available 04/28/2021 Are You Afraid Of Your Partner? No [email or web address] Information not available 04/28/2021 Drug Use? No Information no t available 02/22/2022 Do You Feel Safe At Home? Yes [email or web address] Information not available 04/28/2021 How Many Children Do You Have? 2 Information not available 09/20/2022 Are You Sexually Active? Yes Information not available 02/22/2022 Have You Recently Traveled Abroad? No [email or web address] Information not available 04/28/2021 Sex: Female Functional Status Question Answer Note LastModified by Organizat ion Details LastModified Time What is your exercise level? Occasional Information not available 02/22/2022 Mental Status None recorded. Family History Relationship Description Onset Age of this Age Resolved Age Notes LastModified by Organization Details LastModified Time Father No current problems or disability [email or web address] Not available 02/20 14:37:22 Mother No current problems or disability [email or web address] Not available 02/20 14:37:22 Notes:No breast, ovarian, ut erine, colon or pancreactic cancer Medical History Condition Response Other Y Gynecological History Statement/Question Response Abnormal Pap N Flow Moderate Date of LMP 06/21/2024 [facility] Biopsy N IPV Screen Done 07/02/2024 Leep N STIs/STDs N Sexual Orientation heterosexual HPV Vaccine Yes Duration of Flow (days) 4 Age at Menarche 11 Age at First Child 22 Current Control Method Oral Contra ceptives Frequency of Cycle (Q days) 28 Sexually Active? Yes Date of Last Pap Smear 09/20/2022 Last HPV Result Negative Obstetrics History GPAL:G 2 P 2 0 0 2 Type Value Full Term 2 Living 2 Total 2 Immunizations Vaccine Type Date Status Note Provider Nam e and Address Organization Details Recorded Time Influenza, MDCK, quadrivalent, PF 05/17/2022 completed GUILLERMO TALAVERA APRN [address], [address] [place] [address], [address], [facility] 05/17/2022 10:27:10 Tdap 06/18/2022 completed LG DAMIAN MD [address], [address] [place] [address], [address], [facility] 06/18/2022 09:39:47 COVID-19, mRNA, LNP-S, PF, 100 mcg/0.5mL dose or 50 mcg/0.25mL dose 08/30/2021 completed Glory Ku, DO [address] [place], [address], [facility] 09/20/2022 12:11:28 COVID-19, mRNA, LNP-S, PF, 100 mcg/0.5mL dose or 50 mcg/0.25mL dose 09/27/2021 completed Glory Ku, DO [address], [address] [place] [address], [address], [facility] 09/20/2022 12:11:28 Past Encounters Encounter ID Performer Location Encounter Start Date Encounter Closed Date Diagnosis/Indication Diagnosis SNOMED-CT Code Diagnosis ICD10 Code [id number] Glory Carey DO [facility] [address] [place] [address] 07/02/2024 09:49:24 07/02/2024 10:59:41 Contraception education 330367497 Z30.09 Pruritus of vagina 57600 003 L29.3 Feeling of pressure in vagina 869808643 R39.89 Health Concerns Section Related Observation LastModified by Organization Detai ls LastModified Time None Recorded Concern Status LastModified by Organization Details LastModified Time None Recorded Payers Encounter Date Sequence Insurance Name Policy Number Policy Rosas Covered Member ID Rosas Member ID Guarantor Name 07/02/2024 1 [employer] [id number] [id number] Wil Sinclair [id number] Herlinda Niceo Notes Date Note Type Note Provider Name and Address Organization Details Recorded Time 07/02/2024 text/html 1. Vulvar and va ginal itching and pelvic/bladder pressure: Pt has been having bladder issues since 2022 - more pressure and worst after urination as well as during times of menses. Pt states 2022 bladder US was normal. Pt has been seeing urology and they are wondering if she has interstitial cystitis. Pt had these pressure sx prior to 03/2024 , but during she was fine, then started to have sx again after . UCx have been OK, but pt has been treated prophylactically for UTI (no improvement after treatment). Pt taking d-mannose that has helped some. Pt had vaginal and vulvar itching ~ 06/18/24 - took OTC Monistat - seemed to help with itching. No discharge, no malodor. Pt still with overall irritation by both vagina and vulva. With menses, everything seems to get worse - but no pain with menses or intercourse. LMP 06/21/24. No F/C. No dysuria - but still with the pressure.2. Contraception: Pt taking OCPs, but reconsidering Nexplanon. Pt recalls with Nexplanon, she was amenorrheic and hoping that with amenorrhea, her pelvic sx will be better as well. Glory Carey, DO [address] [facility], 3rd [address], [place], [address], [place] - [facility] 07/02/2024 10:47:57 OBGyn Episode No OBEpisode recorded.
[2024-07-03 16:09] LABS: Appearance Urine Cloudy; Color Urine Yellow; Glucose Urine UA Negative (Negative); Leukocyte Esterase Urine Negative (Negative); Nitrite Urine Negative (Negative); PH 5.5 (5.0-9.0); Urine Blood Negative (Negative); Urine Ketones Negative (Negative); Urine Protein Negative (Neg-Trace)
[2024-07-03 16:12] LABS: Bacteria Urine Trace (None Seen); Hyaline Casts Urine 0-2 /LPF (0-2); RBC Urine 0-2 /HPF (0-2); WBC Urine 0-5 /HPF (0-5)
== END 2024-07-03 12:27 | disposition home or self-care (01) ==
LOC: HO.HMGCLDS 12:26
PROVIDERS: PCP Internal Medicine; Visit Provider Nurse Practitioner Family
DX: N39.0 Urinary tract infection, site not specified (principal)
CPT/HCPCS: 81001; 87086